=== PATIENT | female | born 1960 | race Caucasian/White ===

== ENCOUNTER 2018-06-08 02:41 | Emergency (ER) | payer MEDICAID ==
[2018-06-08 03:53] LABS: microscopic required? YES; urine erythrocyte TRACE (NEGATIVE)
[2018-06-08 04:03] LABS: CALCIUM 8.3 mg/dL (8.5-10.1); CARBON DIOXIDE 25.6 mmol/L (21-32); CHLORIDE SERUM 106 mmol/L (98-107); CREATININE SERUM 0.4 mg/dL (0.6-1.0); GFR1 > 60 mL/min; GLUCOSE SERUM 81 mg/dL (74-106); POTASSIUM SERUM 4.9 mmol/L (3.5-5.1); SODIUM SERUM 142 mmol/L (136-145)
[2018-06-08 04:08] LABS: ALKALINE PHOSPHATASE 113 U/L (46-116); ALT/SGPT 50 U/L (14-59); AST/SGOT 57 U/L (15-37); BILIRUBIN TOTAL 0.37 mg/dL (0.20-1.00); TOTAL PROTEIN, SERUM 6.7 g/dL (6.4-8.2)
[2018-06-08 04:18] LABS: ALBUMIN 2.8 g/dL (3.4-5.0)
[2018-06-08 04:28] LABS: BASOPHIL % 0.7 % (0-2); PLATELET COUNT 338 x10^3mcL (130-400)
[2018-06-08 04:29] LABS: RED CELL DISTRIBUTION WIDTH 14.7 % (11.5-14.5)
[2018-06-08 04:54] VITALS: BP 145/80
== END 2018-06-08 04:54 | disposition home or self-care (01) ==
LOC: ED 02:41
PROVIDERS: Emergency Medicine
DX: R10.2 Pelvic and perineal pain (principal); J45.909 Unspecified asthma, uncomplicated; I10 Essential (primary) hypertension
CPT/HCPCS: 36415; 86694; 87491; 87591; J0696

== ENCOUNTER 2019-01-23 18:29 | Emergency (ER) | payer MEDICAID ==
[~2019-01-23] VITALS: Ht 154.9 cm; Wt 72.6 kg
[2019-01-23 18:32] VITALS: Ht 154.9 cm; Wt 72.6 kg
[2019-01-23 19:30] VITALS: BP 156/78
== END 2019-01-23 19:30 | disposition home or self-care (01) ==
LOC: ED 18:29
DX: S01.81XA Laceration without foreign body of other part of head, initial encounter (principal); W22.8XXA Striking against or struck by other objects, initial encounter; Y93.89 Activity, other specified; Y92.89 Other specified places as the place of occurrence of the external cause; Y99.8 Other external cause status